=== PATIENT | male | born 1995 | race Hispanic/Latino ===

== ENCOUNTER 2020-09-02 14:58 | Outpatient (CLI) | payer BC ==
--- NOTE | 2020-09-02 16:29 | MRI ---
MR OF THE RIGHT KNEE WITHOUT CONTRAST INDICATION: Right knee pain after injury to the right knee last week TECHNIQUE: Axial and coronal PD fat sat, sagittal T2 fat sat, sagittal PD turbo spin echo and T1 dani nal images were obtained of the right knee. COMPARISON: None. FINDINGS: Joint effusion: There is a mild-sized joint effusion. There is a mild-sized medial synovial suprapate llar plica. Semimembranosus-medial gastrocnemius popliteal cyst: None. Ligaments: There is complete disruption of the ACL. There is a grade 1 MCL and fibular collateral lig ament sprain. The PCL is intact. Extensor mechanism: Intact. Menisci: There is a horizontally oriented oblique tear involving the central posterior horn and poste rior root of the medial meniscus. Lateral meniscus is intact. Articular cartilage: Intact. Osseous structures: There is a pivot shift contusion pattern involving the posterior tibial plateau. And medial femoral condyle. Popliteus and IT band: Normal. IMPRESSION: 1. Complete ACL disruption. 2. Grade 1 MCL and fibular collateral ligament sprain. 3. Medial meniscal tear. 4. Pivot shift contusion pattern of the posterior tibial plateau and medial femoral condyle.
== END 2020-09-02 14:59 | disposition home or self-care (01) ==
LOC: SCSMRI 14:58
PROVIDERS: ATTEND Orthopaedic Surgery
DX: S83.511A Sprain of anterior cruciate ligament of right knee, initial encounter (principal); S83.411A Sprain of medial collateral ligament of right knee, initial encounter; S83.241A Other tear of medial meniscus, current injury, right knee, initial encounter; S70.11XA Contusion of right thigh, initial encounter

== ENCOUNTER 2020-09-28 06:20 | Outpatient (CLI) | payer BC, OTHER ==
[2020-09-28 09:12] LABS: Hemoglobin 13.6 g/dL (14.0-18.0); Mean Corpuscular HGB CONC 33.7 G/DL (32.0-36.0); Mean Corpuscular Hemoglobin 29.2 PG (27.0-33.0); Mean Corpuscular Volume 86.7 fl (80.0-100.0); Platelet Count 256 10x3/uL (130-400); RBC Distribution Width 11.9 % (11.5-14.5); Red Blood Cell (RBC) Count 4.66 10x6/uL (4.40-5.80); White Blood Cell (WBC) Count 9.8 10x3/uL (4.5-11.0)
[2020-09-29 12:57] LABS: SARS-CoV-2 MS2 Positive; SARS-CoV-2 N Gene Negative; SARS-CoV-2 S Gene Negative; SARS-CoV-2 by NAA Not Detected (NotDetected); SARS-CoV-2 orf1ab Negative
== END 2020-09-28 06:21 | disposition home or self-care (01) ==
LOC: LABBT 06:20
PROVIDERS: ATTEND Orthopaedic Surgery
DX: Z01.812 Encounter for preprocedural laboratory examination (principal); S83.511A Sprain of anterior cruciate ligament of right knee, initial encounter; Z20.828 Contact with and (suspected) exposure to other viral communicable diseases
CPT/HCPCS: 85027; 87635; U0003

== ENCOUNTER 2020-10-01 06:31 | Observation (INO) | payer BC ==
[2020-09-30 09:21] VITALS: BMI 28.7
[2020-10-01] MEDS ORDERED: Fentanyl 100 MCG/2 ML VIAL ONE ×4 (06:36→09:55)
[2020-10-01] MEDS ORDERED: Midazolam HCl 2 mg/2 ml Vial ONE (06:59)
[2020-10-01] MEDS ORDERED: Fentanyl 100 MCG/2 ML VIAL SLOW IVP PRN (07:39)
[2020-10-01] MEDS ORDERED: Zolpidem Tartrate 5 MG TAB PO PRN (07:45)
[2020-10-01] MEDS ORDERED: Ketorolac Tromethamine 30 MG/ML VIAL IVP PRN ×2 (07:45→09:10)
[2020-10-01] MEDS ORDERED: Ondansetron PF 4 MG/2 ML Vial IVP PRN (07:45)
[2020-10-01] MEDS ORDERED: traMADol HCl 50 MG TAB PO PRN ×2 (07:45)
[2020-10-01] MEDS ORDERED: Promethazine HCl 25 MG/ML VIAL IM PRN ×2 (07:45→09:10)
[2020-10-01] MEDS ORDERED: HYDROcodone/Acetaminophen 10/325 mg Tablet PO PRN ×2 (07:45)
[2020-10-01] MEDS ORDERED: Ropivacaine 0.2% 550 ML 550 ML NERVE BLCK SCH (07:45)
[2020-10-01] MEDS ORDERED: Meperidine HCl/PF 25 MG/ML VIAL SLOW IVP PRN (09:10)
[2020-10-01] MEDS ORDERED: HYDROmorphone 2 MG/ML VIAL SLOW IVP PRN (09:10)
[2020-10-01] MEDS ORDERED: Meperidine HCl/PF 25 MG/ML VIAL ONE (09:10)
[2020-10-01] MEDS ORDERED: Ondansetron HCl/PF 4 MG/2 ML Vial IVP PRN (09:10)
[2020-10-01] MEDS ORDERED: Promethazine HCl 25 MG/ML VIAL SLOW IVP PRN (09:10)
[2020-10-01] MEDS ORDERED: Milk Of Magnesia 30 ML UDCUP PO PRN (09:15)
[2020-10-01] MEDS ORDERED: Bisacodyl 10 MG SUPP PR PRN (09:15)
[2020-10-01] MEDS ORDERED: Acetaminophen 500 MG TAB PO PRN (09:15)
[2020-10-01] MEDS ORDERED: Morphine 2 MG/ML VIAL SLOW IVP PRN (09:15)
[2020-10-01] MEDS ORDERED: Methocarbamol 500 MG TAB PO PRN (09:15)
[2020-10-01] MEDS ORDERED: HYDROcodone/Acetaminophen 7.5/325 mg Tablet PO PRN ×2 (09:15)
[2020-10-01] MEDS ORDERED: diphenhydrAMINE 50 MG CAP PO PRN (09:15)
[2020-10-01] MEDS ORDERED: Ketorolac Tromethamine 30 MG/ML VIAL ONE (09:37)
[2020-10-01] MEDS ORDERED: Ondansetron PF 4 MG/2 ML Vial ONE (10:05)
[2020-10-01] MEDS ORDERED: PROPOFOL 200 MG/20 ML VIAL ONE (10:05)
[2020-10-01] MEDS ORDERED: Ropivacaine 0.5% HCl/PF (150 MG/30 ML VIAL) ONE (10:05)
[2020-10-01] MEDS ORDERED: Dexamethasone 20 MG/5 ML VIAL ONE (10:05)
[2020-10-01] MEDS ORDERED: Ropivacaine 0.2% HCl/PF (40 MG/20 ML VIAL) ONE (10:05)
[2020-10-01] MEDS: Lactated Ringer's 1,000 ML IV SCH ×2 (11:16→23:12)
[2020-10-01] MEDS: CEFAZOLIN 2 GM in Premix Bag 1 BAG IVPB SCH ×2 (14:31→22:50)
[2020-10-01] MEDS: Famotidine 20 MG TAB PO SCH (22:50)
[2020-10-02] MEDS: Lactated Ringer's 1,000 ML IV SCH (05:38)
[2020-10-02] MEDS: Famotidine 20 MG TAB PO SCH (07:45)
[2020-10-02 11:10] VITALS: BP 145/83; TEMP 97.5
[2020-10-02] MEDS ORDERED: FLU VACC QS2020-21(6MOS UP)/PF 60 MCG/0.5 ML SYRINGE IM ONE (11:15)
--- NOTE | 2020-10-03 19:20 | OP ---
DATE OF PROCEDURE: 10/01/2020 PREOPERATIVE DIAGNOSIS: Right knee anterior cruciate ligament reconstruction with possible meniscal tear. POSTOPERATIVE DIAGNOSES: 1. Anterior cruciate ligament tear. 2. Stable undersurface tear of the posterior horn of medial meniscus. BEHAVIOR CLINICIAN: Dada Harmon MD. [facility] [employer] surgeon was present throughout the procedure to include the approach, harvesting of the patellar tendon graft, drilling, and placement of the new graft, bone grafting, and closure of the wound. ESTIMATED BLOOD LOSS: Minimal. COMPLICATIONS: None. ANESTHESIA: The patient had general anesthetic as well as preoperative block. IMPLANTS: A 7 x 25 metal interference screw on the femur and bicortical screw with a smooth washer on the tibia. DISPOSITION: The patient went to recovery room in stable condition. INDICATIONS: This is a 25-year-old male who injured his knee while playing soccer. At this time, he is presenting for ACL reconstruction. DESCRIPTION OF PROCEDURE: After all appropriate consent forms were explained and signed, Luis was taken to the operating room and at this time was given general anesthetic. Once the level of anesthesia was appropriate, an exam under anesthesia was performed. Positive Celestino was noted. He was stable to varus and valgus stress. At this time, tourniquet was placed on the thigh and the leg was placed in arthroscopic leg navas. The limb was then prepped and draped in standard surgical fashion. The limb was exsanguinated and tourniquet was taken up to 300 mmHg. A midline incision was made with a 10 blade down through skin. Bovie was used to coagulate any brisk venous bleeding. New blade was used to take the paratenon off the underlying patellar tendon and at this time a double 10 blade saw and osteotome were used to harvest central third patellar tendon graft. This was taken to the back table and made so the plugs were size 10. The graft site was loosely closed using multiple Vicryl sutures. Inferolateral portal was established and scope was placed into the knee joint. A needle localization technique was then used to make our medial working portal. Diagnostic arthroscopy commenced in the notch. The ACL was found to be torn. PCL was intact and remnants of this was removed with a shaver. Medial compartment was evaluated. The femur and the tibia were in good condition. The medial meniscus was found to be stable throughout. There were no tear noted on the superior surface . There was a tear noted in the posterior horn of the inferior surface. This was found to be stable and the meniscus did not displace into the joint, it was not very mobile, and therefore, this was debrided with a shaver to allow this to heal postoperatively. The lateral compartment was evaluated. The femur, tibia, and lateral meniscus were in good condition. No loose bodies noted. The patellofemoral joint was also found to be normal. At this time, the knee was flexed and through the medial portal an [id number] guide was used to place our guide pin. The 10mm reamer was used to ream to a depth of 30 mm. At this time, all loose bony cartilaginous debris was removed from the knee joint. At this time, we then turned our attention to drilling the tibial tunnel and the tibial tunnel guide was placed into the knee at 52.5 degrees . All soft tissue was removed from around the pin with a bone rongeur. A 10 mm reamer was used to ream the tibial tunnel. At this time, all loose bony and cartilaginous debris was removed from the knee joint. A red rasp and tucker were used to smooth off the chamfer edges of the tunnels. At this time, the knee was flexed and guide pin was used to pull our passing suture into the knee joint. This was pulled down the tibial tunnel and used to pull our graft into place. A 7 x 25 metal interference screw was used to fixate our femoral side. We then drilled, tapped and placed bicortical screw with a smooth washer, tying our strings around this post with the knee in full extension and posterior drawer being applied. At this time, the knee was taken through full range of motion under direct visualization and was found to have no impingement. At this time, scope was removed and the knee was drained. The bone graft area on the patella and the tibia were at this time filled with bone graft. Once this was done, a running Vicryl was used to close our paratenon. 2-0 Vicryl and surgical good were then used to close the skin. Bulky sterile dressing was applied. At this time, tourniquet was let down. Toes pinked up nicely. The patient was awakened, taken to recovery room in stable condition. All counts were correct at the end of the case and he did receive preoperative IV antibiotics. Job ID: [id number] [facility]
== END 2020-10-02 11:05 | disposition home or self-care (01) ==
LOC: SDC 06:31 → SJJU 09:18
PROVIDERS: ADMIT Orthopaedic Surgery; ATTEND Orthopaedic Surgery
PROC: 0MRN47Z Replacement of Right Knee Bursa and Ligament with Autologous Tissue Substitute, Percutaneous Endoscopic Approach (ICD-10-PCS; principal; 2020-10-01)
DX: S83.511A Sprain of anterior cruciate ligament of right knee, initial encounter (principal); G89.18 Other acute postprocedural pain; X58.XXXA Exposure to other specified factors, initial encounter; Y93.66 Activity, soccer
CPT/HCPCS: 96365; 96375; A4306; C1713; G0378; J0690; J1100; J1885; J2175; J2250; J2405; J2704; J2795; J3010